=== PATIENT | female | born 1990 | race Hispanic/Latino ===

== ENCOUNTER 2017-11-23 12:35 | Emergency (ER) | payer SELFPAY ==
[2017-11-23 14:29] LABS: Urine Blood 1+ (NEG); Urine Glucose NEGATIVE (NEG); Urine Protein NEGATIVE (NEG); Urine Specific Gravity 1.015 (1.005-1.030); Urine pH 5.5 (5.0-7.0)
[2017-11-23 14:52] LABS: Bicarbonate 26 mEq/L (21-31); Glucose Level 89 mg/dL (65-120); Potassium 3.5 mEq/L (3.6-5.0); Sodium Level 134 mEq/L (135-145)
[2017-11-23 14:53] LABS: BUN Blood Urea Nitrogen 11 mg/dL (6-20)
[2017-11-23 14:59] LABS: Absolute Lymphocytes (CBC) 3.1 K/uL (0.7-4.9); Absolute Monocytes 0.6 K/uL (0.1-1.3); Absolute Neutrophil 5.6 K/uL (1.8-8.0); Basophils % 0.6 % (0-1.3); Eosinophils % 1.6 % (0-4.4); Hematocrit 37.8 % (36.0-45.0); Lymphocytes % 32.5 % (15.3-44.8); MCH 20.9 pg (27.0-35.0); MCV 65.5 fL (80-100); MPV 9.2 fL (7.6-11.3); Monocytes % 6.6 % (3.3-12.3); RBC Red Blood Cell Count 5.77 M/uL (3.86-4.86)
[2017-11-23 15:07] LABS: HCG, Quantitative 697.3 mIU/mL (<5)
[2017-11-23 15:24] LABS: Blood Morphology Comment NOTED (NOT SEEN); Platelet Estimate ADEQ; Urine White Blood Cell Casts OK
[2017-11-23 15:25] LABS: Hypochromasia 1+
--- NOTE | 2017-11-23 15:40 | EDPHYS ---
Physician Documentation [facility] Name: Luann Valenzuela Age: 27 yrs Sex: Female : 1990 Arrival Date: 11/23/2017 Time: 12:38 Bed 8 Private MD: None, None ED Physician Dominick Durán HPI: 11/23 15:00 This 27 yrs old Female presents to ER via Ambulatory with complaints of jr8 Vaginal Bleeding, + Preg <12wks. 15:00 The patient presents to the emergency department with abdominal pain, of the pelvis, jr8 vaginal bleeding, that is moderate. The estimated gestational age is 6 weeks. Previous pregnancies: in previous pregnancies patient has had vaginal delivery. Associated signs and symptoms: The patient has no apparent associated signs or symptoms. The patient has not experienced similar symptoms in the past. The patient has not recently seen a physician. 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 - Social history:: Smoking status: Patient/guardian denies using tobacco. ROS: 15:37 Eyes: Negative for injury, pain, redness, and discharge, ENT: Negative for injury, jr8 pain, and discharge, Neck: Negative for injury, pain, and swelling, Cardiovascular: Negative for chest pain, palpitations, and edema, Respiratory: Negative for shortness of breath, cough, wheezing, and pleuritic chest pain, Abdomen/GI: Negative for abdominal pain, nausea, vomiting, diarrhea, and constipation, Back: Negative for injury and pain, MS/Extremity: Negative for injury and deformity, Skin: Negative for injury, rash, and discoloration, Neuro: Negative for headache, weakness, numbness, tingling, and seizure. 15:37 : Positive for vaginal bleeding, Negative for urinary symptoms, vaginal discharge, vaginal itching. Exam: 15:37 Eyes: Pupils equal round and reactive to light, extra-ocular motions intact. Lids and jr8 lashes normal. Conjunctiva and sclera are non-icteric and not injected. Cornea within normal limits. Periorbital areas with no swelling, redness, or edema. ENT: Nares patent. No nasal discharge, no septal abnormalities noted. Tympanic membranes are normal and external auditory canals are clear. Oropharynx with no redness, swelling, or masses, exudates, or evidence of obstruction, uvula midline. Mucous membranes moist. Neck: Trachea midline, no thyromegaly or masses palpated, and no cervical lymphadenopathy. Supple, full range of motion without nuchal rigidity, or vertebral point tenderness. No Meningismus. Cardiovascular: Regular rate and rhythm with a normal S1 and S2. No gallops, murmurs, or rubs. Normal PMI, no JVD. No pulse deficits. Respiratory: Lungs have equal breath sounds bilaterally, clear to auscultation and percussion. No rales, rhonchi or wheezes noted. No increased work of breathing, no retractions or nasal flaring. Abdomen/GI: Soft, non-tender, with normal bowel sounds. No distension or tympany. No guarding or rebound. No evidence of tenderness throughout. Back: No spinal tenderness. No costovertebral tenderness. Full range of motion. Skin: Warm, dry with normal turgor. Normal color with no rashes, no lesions, and no evidence of cellulitis. MS/ Extremity: Pulses equal, no cyanosis. Neurovascular intact. Full, normal range of motion. Neuro: Awake and alert, GCS 15, oriented to person, place, time, and situation. Cranial nerves II-XII grossly intact. Motor strength 5/5 in all extremities. Sensory grossly intact. Cerebellar exam normal. Normal gait. Vital Signs: 13:02 BP 120 / 74; Pulse 72; Resp 18; Temp 99.0; Pulse Ox 100% on R/A; Weight 83.91 kg; aj Height 5 ft. 6 in. (167.64 cm); Pain 2/10; 14:25 BP 124 / 81; Pulse 62; Resp 18; Pulse Ox 100% on R/A; ae1 14:55 BP 104 / 71; Pulse 61; Resp 18; Pulse Ox 100% on R/A; ae1 15:42 BP 114 / 72; Pulse 62; Resp 18; Pulse Ox 100% on R/A; ae1 13:02 Body Mass Index 29.86 (83.91 kg, 167.64 cm) aj MDM: 13:52 Patient medically screened. [facility] 15:37 Data reviewed: vital signs, nurses notes, lab test result(s), radiologic studies, [facility] ultrasound, and as a result, I will discharge patient. Data interpreted: Pulse oximetry: on room air is 100 %. Interpretation: normal. Counseling: I had a detailed discussion with the patient and/or guardian regarding: the historical points, exam findings, and any diagnostic results supporting the discharge/admit diagnosis, lab results, radiology results, the need for outpatient follow up, an OB/Gyne specialist, to return to the emergency department if symptoms worsen or persist or if there are any questions or concerns that arise at home. 15:51 ED course: F/U HCG in 48 hours recommended to patient. Patient will see OB on Tuesday . [facility] 11/23 14:13 Order name: Urine Dipstick--Ancillary (enter results); Complete Time: 14:35 [facility] 11/23 14:13 Order name: Urine --Ancillary (enter results); Complete Time: 14:35 [facility] 11/23 14:15 Order name: Quantitative Hcg; Complete Time: 15:28 [facility] 11/23 14:15 Order name: Abo/rh Typing; Complete Time: 14:48 [facility] 11/23 14:15 Order name: Basic Metabolic Panel; Complete Time: 15:28 [facility] 11/23 14:15 Order name: CBC with Diff; Complete Time: 15:28 [facility] 11/23 14:15 Order name: IV Saline Lock; Complete Time: 14:22 [facility] 11/23 14:15 Order name: Labs collected and sent; Complete Time: 14:22 [facility] 11/23 14:15 Order name: NPO; Complete Time: 14:22 [facility] 11/23 14:16 Order name: US Transvaginal Ob; Complete Time: 15:51 [facility] 11/23 15:01 Order name: CBC Smear Scan; Complete Time: 15:28 EDMS Administered Medications: No medications were administered Point of Care Testing: Urine : 14:26 hCG Reading: Positive; ae1 Disposition: 11/23/17 15:39 Discharged to Home. Impression: Threatened . - Condition is Stable. - Discharge Instructions: Threatened Miscarriage, Pelvic Rest. - Medication Reconciliation Form, Thank You Letter, Antibiotic Education, Prescription Opioid Use form. - Follow up: Private Physician; When: 1 week; Reason: Recheck today's complaints, Continuance of care, Re-evaluation by your physician. - Problem is new. - Symptoms have improved. Addendum: 11/25/2017 06:41 Co-signature as Attending Physician, Dominick Durán MD I agree with the assessment and w a plan of care. Signatures: Dispatcher [employer] EDMS Juana Ruiz, RN RN aj Ruddy Scherer PA PA jr8 Aden Burleson RN RN ae1 Dominick Durán MD MD nc Corrections: (The following items were deleted from the chart) 11/23 15:59 15:39 11/23/2017 15:39 Discharged to Home. Impression: Threatened . Condition ae1 is Stable. Forms are Medication Reconciliation Form, Thank You Letter, Antibiotic Education, Prescription Opioid Use. Follow up: Private Physician; When: 1 week; Reason: Recheck today's complaints, Continuance of care, Re-evaluation by your physician. Problem is new. Symptoms have improved. jr8
--- NOTE | 2017-11-23 15:40 | ER ---
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 Transition of care: patient was not received from another setting of care. Onset of symptoms was November 23, 2017. Initial Sepsis Screen: Does the patient meet any 2 criteria? No. Patient's initial sepsis screen is negative. Does the patient have a suspected source of infection? No. Patient's initial sepsis screen is negative. Care prior to arrival: None. 13:01 Method Of Arrival: Ambulatory aj 13:01 Acuity: NOAM 3 aj Triage Assessment: 13:02 General: Appears in no apparent distress. comfortable, Behavior is calm, cooperative, aj appropriate for age. Pain: Complains of pain in suprapubic area and left inguinal area Pain currently is 2 out of 10 on a pain scale. Neuro: Level of Consciousness is awake, alert, obeys commands, Oriented to person, place, time, situation, Appropriate for age. Respiratory: Airway is patent Respiratory effort is even, unlabored, Respiratory pattern is regular, symmetrical. : Reports vaginal bleeding that is moderate flow. Derm: Skin is intact, is healthy with good turgor, Skin is pink, warm \T\ dry. normal. 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 - Social history:: Smoking status: Patient/guardian denies using tobacco. Screenin:25 Abuse screen: Denies threats or abuse. Nutritional screening: No deficits noted. ae1 Tuberculosis screening: No symptoms or risk factors identified. Fall Risk None identified. Assessment: 14:23 General: Appears in no apparent distress. comfortable, well groomed, Behavior is calm, ae1 cooperative. Pain: Denies pain. Neuro: Level of Consciousness is awake, alert, obeys commands, Oriented to person, place, time, situation. Cardiovascular: Heart tones S1 S2 present Patient's skin is warm and dry. Respiratory: Airway is patent Respiratory effort is even, unlabored, Respiratory pattern is regular, symmetrical, Breath sounds are clear bilaterally. GI: No signs and/or symptoms were reported involving the gastrointestinal system. Abdomen is round. : No signs and/or symptoms were reported regarding the genitourinary system. EENT: No signs and/or symptoms were reported regarding the EENT system. Derm: Skin is normal. Musculoskeletal: No signs and/or symptoms reported regarding the musculoskeletal system. 14:56 Reassessment: Patient appears in no apparent distress at this time. Patient and/or ae1 family updated on plan of care and expected duration. Pain level reassessed. Patient denies pain at this time. 15:43 Obstetrical Assessment: General assessment: awake and alert, skin warm and dry, ae1 respirations even and unlabored. 15:44 Reassessment: Provider at bedside discussing plan of care. ae1 Vital Signs: 13:02 BP 120 / 74; Pulse 72; Resp 18; Temp 99.0; Pulse Ox 100% on R/A; Weight 83.91 kg; aj Height 5 ft. 6 in. (167.64 cm); Pain 2/10; 14:25 BP 124 / 81; Pulse 62; Resp 18; Pulse Ox 100% on R/A; ae1 14:55 BP 104 / 71; Pulse 61; Resp 18; Pulse Ox 100% on R/A; ae1 15:42 BP 114 / 72; Pulse 62; Resp 18; Pulse Ox 100% on R/A; ae1 13:02 Body Mass Index 29.86 (83.91 kg, 167.64 cm) aj Vitals: 15:43 Heart Tones Please see ultrasound report. . ae1 ED Course: 12:38 Patient arrived in ED. mr 12:38 None, None is Private Physician. mr 13:02 Triage completed. aj 13:02 Arm band placed on left wrist. Patient placed in waiting room, Patient notified of wait aj time. 13:50 Benjy, Aden, RN is Primary Nurse. ae1 13:52 Ruddy Scherer PA is PHCP. jr8 13:52 Dominick Durán MD is Attending Physician. jr8 14:25 Note: us delayed. awaiting hcg/urine results. lc3 14:25 Bed in low position. Call light in reach. Side rails up X 1. Adult w/ patient. Pulse ox ae1 on. NIBP on. Warm blanket given. 14:34 Initial lab(s) drawn, by me, sent to lab. Inserted saline lock: 22 gauge in right jb1 antecubital area, using aseptic technique. Blood collected. 15:30 US Transvaginal Ob In Process Unspecified. EDMS 15:42 Patient moved back from ultrasound. ae1 15:55 No provider procedures requiring assistance completed. IV discontinued, intact, ae1 bleeding controlled, No redness/swelling at site. Pressure dressing applied. Administered Medications: No medications were administered Point of Care Testing: Urine : 14:26 hCG Reading: Positive; ae1 Outcome: 15:39 Discharge ordered by . jr8 15:56 Condition: stable ae1 15:56 Discharged to home ambulatory, with significant other. ae1 15:56 Discharge instructions given to patient, Instructed on discharge instructions, follow up and referral plans. Demonstrated understanding of instructions. 15:59 Patient left the ED. ae1 Signatures: Dispatcher [employer] Syed Henry jb1 Juaan Ruiz RN RN aj Rivera, Maria mr Ruddy Scherer PA PA jr8 Estephanie Husain Andrea, RN RN ae1
--- NOTE | 2017-11-23 15:44 | RAD REPORT ---
EXAM DESCRIPTION: US - Transvaginal OB - 11/23/2017 3:30 pm CLINICAL HISTORY: with abdominal pain and vaginal bleeding COMPARISON: None. FINDINGS: The uterus measures 9 x 5 x 5 centimeters. A 2 millimeter round fluid collection is prese nt within the endometrium. A yolk sac is not seen. A pole is not displayed. The ovaries are normal in size and echotexture. A 2.2 centimeter left ovarian cyst is present No significant free fluid is seen. A nabothian cyst is present within the cervix IMPRESSION: 2 millimeter round fluid collection within the endometrium may represent a small gestati onal sac of an intrauterine . Pseudo gestational sac associated with an ectopic ca n also have this appearance. This all should be correlated clinically and with serial beta HCG levels . A follow-up ultrasound in 1 week is recommended
== END 2017-11-23 15:59 | disposition home or self-care (01) ==
LOC: ER 12:35
DX: O20.0 Threatened abortion (principal); Z3A.01 Less than 8 weeks gestation of pregnancy
CPT/HCPCS: 36415; 76817; 80048; 81003; 81025; 84702; 85025; 86900; 86901; 99284

== ENCOUNTER 2024-04-30 08:50 | Day surgery (SDC) | payer OTHER, SELFPAY ==
[2024-04-27 14:06] LABS: Anion Gap 6.8 mEq/L (5.0-15.0); Potassium 3.8 mEq/L (3.5-5.1)
[2024-04-27 14:31] LABS: Absolute Basophils 0.1 K/uL (0-0.5); Absolute Eosinophils 0.3 K/uL (0-0.5); Absolute Lymphocytes (CBC) 2.8 K/uL (0.7-4.9); Absolute Monocytes 0.7 K/uL (0.1-1.3); Absolute Neutrophil 5.5 K/uL (1.8-8.0); Basophils % 1.1 % (0-1.3); Eosinophils % 3.7 % (0-4.4); Hematocrit 37.8 % (36.0-45.0); Hemoglobin 12.1 g/dL (12.0-15.0); Lymphocytes % 29.9 % (15.3-44.8); MCH 21.3 pg (27.0-35.0); MCHC 32.1 g/dL (32.0-36.0); MCV 66.3 fL (80-100); MPV 8.6 fL (7.6-11.3); Monocytes % 7.1 % (3.3-12.3); Neutrophils % 58.2 % (41.7-73.7); Platelets 315 thou/uL (152-406); Red Cell Distribution Width 16.1 % (12.1-15.2)
[2024-04-27 14:38] LABS: Blood Morphology Comment NOTED (NOT SEEN); Hypochromasia 1+; Microcytosis 1+; Platelet Estimate ADEQ; White Blood Cell Scan OK (OK)
[2024-04-30] MEDS ORDERED: Ringers Lactate 1,000 ML IV ONE (09:08)
[2024-04-30] MEDS ORDERED: CEFAZOLIN SODIUM 1 GM/VIAL ONE (09:08)
[2024-04-30] MEDS ORDERED: FENTANYL CITR 100 MCG/2 ML ONE (09:50)
[2024-04-30] MEDS ORDERED: LIDOCAINE 2% MPF 5 ML VIAL ONE (09:50)
[2024-04-30] MEDS ORDERED: MIDAZOLAM HCL 2 MG/2 ML INJ ONE (09:50)
[2024-04-30] MEDS ORDERED: propofoL 200 MG/20 ML VIAL IV ONE (09:50)
[2024-04-30] MEDS ORDERED: ONDANSETRON 4 MG/2 ML VIAL ONE (09:50)
[2024-04-30] MEDS ORDERED: dexAMETHasone 4 MG/ML VIAL ONE (10:41)
[2024-04-30] MEDS ORDERED: KETOROLAC 30 MG/ML INJ ONE (11:06)
[2024-04-30] MEDS ORDERED: GLYCOPYRROLATE 0.2 MG/ML SYR ONE (11:09)
--- NOTE | 2024-04-30 11:28 | P.BOP ---
Preoperative diagnosis: prolapsed tender thrombosed hemorrhoid Postoperative diagnosis: same Primary procedure: EUA, Anoscopy, Rigid proctoscopy, Hemorrhoidectomy external Estimated blood loss: <10cc Specimen: Right anterolateral hemorrhoidectomy Findings: as above. int and ext hemorrhoids Anesthesia: General Complications: None Drain(s): Other (surgicell) Transferred to: Recovery Room Condition: Good
[2024-04-30] MEDS ORDERED: HYDROMORPHONE HCL 1 MG/ML INJ ONE ×2 (11:53→12:03)
[2024-04-30] MEDS: HYDROCODONE/APAP 5/325 MG TAB ONE (12:45)
[2024-04-30 13:43] VITALS: BP 121/80; TEMP 97.6; O2SAT 98
--- NOTE | 2024-05-01 15:24 | OP ---
Surgeon: Luan Bacon MD Preoperative Diagnoses: Prolapsed tender thrombosed hemorrhoid. Postoperative Diagnosis: Prolapsed tender thrombosed hemorrhoid. Procedure: Examination under anesthesia. Anoscopy. Rigid proctoscopy. Hemorrhoidectomy, external. Estimated Blood Loss: Less than 10 cc. Specimen: Right anterolateral hemorrhoidectomy. Findings: Patient has internal and external hemorrhoids. May need more than 1 trip to the OR since they are almost circumferential and it cannot be done all today. We are trying to remove the ones gi ving her most of the pain right now and then as we explained to her, later this may have to be done i n stages. Anesthesia: General plus local. Complications: None. Indication: This is a case of a 33-year-old patient who has prolapsed, tender hemorrhoids. She note s that she is having it worse when she has a bowel movement. did not help. She has been t rying creams, reducing her weight, avoiding constipation, and it is still giving her pain and discomf ort. Those recent ones are becoming hard and tender. She wants them excised. The benefits, alterna tives, and risks of EUA, anoscopy, proctoscopy, possible hemorrhoidectomy were fully explained to the patient which include, but not limited to, infection, bleeding, damage to adjacent structures, anest hesia complication, recurrence, anal stricture, anal incontinence, [place], and even . She also unde rstands this may not relieve any symptoms. She might need more than one surgical intervention. She understood, signed a consent. Description Of Operation: The patient was brought to the operating room, placed in supine position. Anesthesia was done without complication. The patient was placed in right Trendelenburg position wi th proper protection. A time-out was called. Rectal examination was done followed by rigid proctosc opy. We noticed the patient to have internal and external hemorrhoids, and on the right anterolatera l region, patient has a large bundle with thrombosed and hard hemorrhoids and those will be removed f irst. She has circumferential internal and external and to confirm that we used an anoscope with a w indow on the side to visualize the anal canal better. So we selected an area today which is what is giving her most of the discomfort. We opened the anoderm and dissected that hemorrhoidal plexus away from the anal sphincter. We preserved the anal sphincter at all time. Then, after that, transected that with a LigaSure. I approximated the anoderm with the help of a 3-0 chromic after making sure w e have hemostasis and then Surgicel was placed in that area. We examined the area once again. No bl eeding. Suture also intact. So, at that moment, I proceeded to remove the anoscope and not before i njecting local anesthetic first. The patient tolerated the procedure well. Sponge counts and instru ment counts were correct. The patient sent to recovery in stable condition. WILBER/CHENG Voice ID: [id number] Report ID: [id number]
--- NOTE | 2024-05-01 15:32 | DS ---
Date of Discharge: 04/30/2024 Diagnosis: Prolapsed tender thrombosed hemorrhoids. Postoperative Diagnosis: Prolapsed tender thrombosed hemorrhoid plus an internal and external hemorr hoids. Procedure: Examination under anesthesia. Anoscopy. Rigid proctoscopy. Hemorrhoidectomy, external. Disposition: Home. Condition: Stable. Activity: As tolerated. No heavy lifting. Discharge Instructions: Follow up in my office in 1 week. Call for appointment at [phone]. Aaron meeks ath 4 times a day and after every bowel movement. WILBER/CHENG Voice ID: [id number] Report ID: [id number]
== END 2024-04-30 13:51 | disposition home or self-care (01) ==
LOC: OR 08:50
PROVIDERS: ATTEND Surgery
PROC: 0DJD8ZZ Inspection of Lower Intestinal Tract, Via Natural or Artificial Opening Endoscopic (ICD-10-PCS; 2024-04-30)
PROC: 06BY0ZC Excision of Hemorrhoidal Plexus, Open Approach (ICD-10-PCS; principal; 2024-04-30 10:45)
DX: K64.5 Perianal venous thrombosis (principal); K64.8 Other hemorrhoids; K62.5 Hemorrhage of anus and rectum
CPT/HCPCS: 85025; 80048; 36415; 81025; 88304; 46999; 45300; J2704; J1100; J2001; J2250; J3010; J1170 ×2; J2405; J7120; J0690